=== PATIENT | female | born 1975 | race Hispanic/Latino ===

== ENCOUNTER 2025-09-24 05:43 | Day surgery (SDC) | payer MEDICARE ==
[~2025-09-24] VITALS: Ht 152.4 cm; Wt 68.0 kg
[2025-09-24] VITALS (10 sets, daily range): BP systolic 96–125; BP diastolic 54–75; PULSE 59–68; RESP 12–18; TEMP 97.1–98
[2025-09-24] MEDS ORDERED: 0.9%NACL 1000ML 0 ML IV ONE (06:12)
[2025-09-24] MEDS: 0.9% NACL 500ML IV.SOLN 500 ML IV ONE (06:40)
[2025-09-24] MEDS ORDERED: AURYXIA 210MG PO (06:42)
[2025-09-24] MEDS ORDERED: FOLI0.8T22 PO (06:42)
[2025-09-24] MEDS ORDERED: CHOL2000 PO (06:42)
[2025-09-24] MEDS ORDERED: SIMV-43 PO (06:42)
[2025-09-24] MEDS ORDERED: LEVO150C5 PO (06:42)
[2025-09-24] MEDS ORDERED: LIDOCAINE HCL 1% 20 ML VIAL ONE (07:34)
--- NOTE | 2025-09-24 08:59 | NUR ---
Full and complete discharge instructions given to Patient and Family. All questions answered. PIV removed with catheter tip intact. Patient tolerating liquids and voided before discharge. W/C to POV with [facility]aily to Home.
== END 2025-09-24 09:00 | disposition home or self-care (01) ==
LOC: ENDO 05:43 → DAH 05:43 → ENDO 09:00
PROVIDERS: ATTEND Internal Medicine Gastroenterology
DX: Z12.11 Encounter for screening for malignant neoplasm of colon (principal); D12.2 Benign neoplasm of ascending colon; E03.9 Hypothyroidism, unspecified; E78.5 Hyperlipidemia, unspecified; I12.0 Hypertensive chronic kidney disease with stage 5 chronic kidney disease or end stage renal disease; N18.6 End stage renal disease; K85.80 Other acute pancreatitis without necrosis or infection; Z90.49 Acquired absence of other specified parts of digestive tract; Z98.84 Bariatric surgery status; Z98.51 Tubal ligation status; Z79.899 Other long term (current) drug therapy
CPT/HCPCS: 45381; 45385; J7040; J2704; A4620; A4215 ×2; A4223; A7002; A4222; A4221; A4663; J7030; A4606; 45390; J3490